=== PATIENT | female | born 1970 | race Hispanic/Latino ===

== ENCOUNTER 2018-04-30 13:21 | Emergency (ER) | payer OTHER ==
[~2018-04-30] VITALS: Ht 165.1 cm; Wt 112.0 kg
--- OUTSIDE RECORDS SUMMARY | 2018-04-30 13:24 | XMS REPORT | Continuity of Care Document ---
Author Author [facility] Interface Address Unknown Phone Unavailable Problems Problem Status Onset Date Classification Date Reported Comments Source Headache 06/05/2017 09/04/2017 [facility] Aching headache 05/29/2017 09/04/2017 [facility] HEADACHE Active 05/29/2017 [facility] Mixed anxiety and depressive disorder<sup>3, 4</sup> Active 10/04/2012 Problem 09/04/2017 Data migrated from [employer] on 09/19/14. [facility] 784.0 - HEADACHE Active 07/05/2012 [facility] [place] Headache<sup>1, 2</sup> Active 04/05/2012 Problem 09/04/2017 Data migrated from [employer] on 09/19/14. [facility] Essential hypertension 09/04/2017 [facility] Anxiety Resolved Problem 09/04/2017 [facility] Elevated serum cholesterol Resolved Problem 09/04/2017 [facility] H/O: migraine Resolved Problem 09/04/2017 [facility] Morbid obesity Active Problem 09/04/2017 [facility] Medications Medication Details Route Status Patient Instructions Ordering Provider Order Date Source Phenergan 25 mg oral tablet 25 mg=1 tab, PO, Q6H, PRN Nausea, # 15 tab, 0 Refill(s) Active 05/29/2017 [facility] normal saline 0.9% IV 500 mL 500 mL, Rate: 500 ml/hr, Infuse over: 1 hr, Route: IV, Dosing Weight 104.545 kg, Total Volume: 500, Start date: 05/29/17 15:08:00 BEE PRODUCER, Duration: 1 doses or times, Stop date: 05/29/17 16:07:00 BEE PRODUCER, 2.15, m2 Inactive 05/29/2017 [facility] Diphenhydramine 12.5 mg, 0.25 mL, Route: IVP, Drug form: INJ, ONCE, Dosing Weight 104.545, kg, Priority: STAT, Start date: 05/29/17 15:07:00 BEE PRODUCER, Stop date: 05/29/17 15:07:00 CSTNotes: (Same as: Benadryl) Inactive 05/29/2017 [facility] Metoclopramide 10 mg, 2 mL, Route: IVP, Drug form: SOLN, ONCE, Dosing Weight 104.545, kg, Priority: STAT, Start date: 05/29/17 15:07:00 BEE PRODUCER, Stop date: 05/29/17 15:07:00 CSTNotes: (Same as: Reglan) Inactive 05/29/2017 [facility] Saline Flush 0.9% 10 mL, Route: IVP, Drug Form: INJ, Dosing Weight 108.182, kg, PRN, PRN Line Flush, Start date: 05/29/17 13:36:00 BEE PRODUCER, Duration: 30 day, Stop date: 06/28/17 13:35:00 CSTNotes: (Same as: BD Posiflush) Inactive 05/29/2017 [facility] Allergies, Adverse Reactions, Alerts Substance Category Reaction Severity Reaction type Status Date Reported Comments Source Immunizations Immunization Date Given Site Status Last Updated Comments Source Results Order Name Results Value Reference Range Date Interpretation Comments Source URINE AND STOOL UA Urobilinogen <=1.0 mg/dL 0.1 - 1.0 05/29/2017 [facility] URINE AND STOOL UA Nitrite Negative (05/29/17 2:06 PM) Negative 05/29/2017 [facility] URINE AND STOOL UA Spec Grav 1.020 <=1.030 05/29/2017 [facility] URINE AND STOOL UA Turbidity Clear (05/29/17 2:06 PM) Clear 05/29/2017 [facility] URINE AND STOOL UA Bili Negative *NA* (05/29/17 2:06 PM) Negative 05/29/2017 [facility] URINE AND STOOL UA Blood Negative (05/29/17 2:06 PM) Negative 05/29/2017 [facility] URINE AND STOOL UA Ketones Negative mg/dL Negative mg/dL 05/29/2017 [facility] URINE AND STOOL UA Color Yellow *NA* (05/29/17 2:06 PM) Yellow 05/29/2017 [facility] URINE AND STOOL UA Mucus Few /LPF None Seen /LPF 05/29/2017 [facility] URINE AND STOOL UA Leuk Est Negative (05/29/17 2:06 PM) Negative 05/29/2017 [facility] URINE AND STOOL UA RBC 3 /HPF 0 - 2 05/29/2017 [facility] URINE AND STOOL UA Sq Epi Occasional /LPF Few /LPF 05/29/2017 [facility] URINE AND STOOL UA WBC 1 /HPF 0 - 5 05/29/2017 [facility] URINE AND STOOL UA Glucose Negative mg/dL Negative mg/dL 05/29/2017 [facility] URINE AND STOOL UA pH 6.0 5.0 - 8.0 05/29/2017 [facility] URINE AND STOOL UA Protein 100 mg/dL Negative mg/dL 05/29/2017 [facility] CARDIAC ENZYMES CK MB Index 1.0 0.0 - 2.5 05/29/2017 [facility] CARDIAC ENZYMES Total CK 111 unit/L 12 - 191 05/29/2017 [facility] CARDIAC ENZYMES CK MB 1.1 ng/mL 0.5 - 3.6 05/29/2017 [facility] CARDIAC ENZYMES Troponin-I null 0.00 - 0.40 05/29/2017 [facility] CARDIAC ENZYMES BNP 14 pg/mL <=100 pg/mL 05/29/2017 [facility] CHEM PANEL eGFR 107 mL/min/1.73m2 05/29/2017 Result Comment: The eGFR is calculated using the CKD-EPI formula. In most young, healthy individuals the eGFR will be >90 mL/min/1.73m2. The eGFR declines with age. An eGFR of 60-89 may be normal in some populations, particularly the elderly, for whom the CKD-EPI formula has not been extensively validated. Use of the eGFR is not recommended in the following populations: Individuals with unstable creatinine concentrations, including patients and those with serious co-morbid conditions. Patients with extremes in muscle mass or diet. The data above are obtained from the National Kidney Disease Education Program (NKDEP) which additionally recommends that when the eGFR is used in patients with extremes of body mass index for purposes of drug dosing, the eGFR should be multiplied by the estimated BMI. [facility] CHEM PANEL AGAP 11.6 meq/L 10.0 - 20.0 05/29/2017 [facility] CHEM PANEL Bili Total 0.5 mg/dL 0.2 - 1.3 05/29/2017 [facility] CHEM PANEL A/G Ratio 0.9 0.7 - 1.6 05/29/2017 [facility] CHEM PANEL Globulin 4.3 g/dL 2.7 - 4.2 05/29/2017 [facility] CHEM PANEL Alk Phos 73 unit/L 39 - 136 05/29/2017 [facility] CHEM PANEL AST 21 unit/L 0 - 37 05/29/2017 [facility] CHEM PANEL B/C Ratio 25 6 - 25 05/29/2017 [facility] CHEM PANEL ALT 29 unit/L 0 - 65 05/29/2017 [facility] CHEM PANEL Total Protein 8.0 g/dL 6.4 - 8.4 05/29/2017 [facility] CHEM PANEL Albumin Lvl 3.7 g/dL 3.5 - 5.0 05/29/2017 [facility] CHEM PANEL Calcium Lvl 8.6 mg/dL 8.5 - 10.5 05/29/2017 [facility] CHEM PANEL Potassium Lvl 3.6 meq/L 3.5 - 5.1 05/29/2017 [facility] CHEM PANEL BUN 16 mg/dL 7 - 22 05/29/2017 [facility] CHEM PANEL Chloride Lvl 107 meq/L 95 - 109 05/29/2017 [facility] CHEM PANEL Sodium Lvl 139 meq/L 135 - 145 05/29/2017 [facility] CHEM PANEL Glucose Lvl 111 mg/dL 70 - 99 05/29/2017 [facility] CHEM PANEL Creatinine Lvl 0.64 mg/dL 0.50 - 1.40 05/29/2017 [facility] CHEM PANEL CO2 24 meq/L 24 - 32 05/29/2017 [facility] HEMATOLOGY Eosinophils 0.5 % 0.0 - 4.0 05/29/2017 [facility] HEMATOLOGY Basophils 0.4 % 0.0 - 1.0 05/29/2017 [facility] HEMATOLOGY Segs-Bands # 5.1 K/CMM 1.5 - 8.1 05/29/2017 [facility] HEMATOLOGY Lymphocytes # 1.4 K/CMM 1.0 - 5.5 05/29/2017 [facility] HEMATOLOGY Monocytes # 0.4 K/CMM 0.0 - 0.8 05/29/2017 [facility] HEMATOLOGY Segs 73.3 % 45.0 - 75.0 05/29/2017 [facility] HEMATOLOGY Lymphocytes 19.6 % 20.0 - 40.0 05/29/2017 [facility] HEMATOLOGY Monocytes 6.2 % 2.0 - 12.0 05/29/2017 [facility] HEMATOLOGY MCHC 33.5 g/dL 32.0 - 36.0 05/29/2017 [facility] HEMATOLOGY RDW 13.4 % 11.5 - 14.5 05/29/2017 [facility] HEMATOLOGY Platelet 260 K/CMM 133 - 450 05/29/2017 [facility] MPV 7.2 fL 7.4 - 10.4 05/29/2017 [facility] [place] WBC 6.9 K/CMM 3.7 - 10.4 05/29/2017 [facility] Hgb 15.2 g/dL 12.0 - 16.0 05/29/2017 [facility] [place] RBC 5.14 M/CMM 4.20 - 5.40 05/29/2017 [facility] Hct 45.3 % 36.0 - 48.0 05/29/2017 [facility] [place] MCV 88.2 fL 80.0 - 98.0 05/29/2017 [facility] [place] MCH 29.5 pg 27.0 - 31.0 05/29/2017 [facility] [place] INR 1.08 0.85 - 1.17 05/29/2017 [facility] [place] PT 14.0 s 12.0 - 14.7 05/29/2017 [facility] D-Dimer null 05/29/2017 [facility] PTT 25.2 s 22.9 - 35.8 05/29/2017 [facility] VIRAL - SEROLOGY Influ B Negative (05/29/17 1:55 PM) Negative 05/29/2017 [facility] VIRAL - SEROLOGY Influ A Negative (05/29/17 1:55 PM) Negative 05/29/2017 [facility] Brain wo contrast CT Brain wo contrast CT Clinical Indication: - hernandez syncope Comparison: Comparison is made to the 07/16/2012 exam TECHNIQUE: CT images were obtained from the foramen magnum to the vertex without the use of intravenous contrast on a multidetector CT. Coronal and sagittal reconstructions were obtained. CT radiation dose DLP: 982 mGy-cm FINDINGS: BRAIN PARENCHYMA: There are normal blackmon-white interfaces, sulci and gyri. There are no focal mass lesions on this noncontrast head CT. There is no mass effect, midline shift or edema. There are no intra-axial or extra-axial fluid collections, intraventricular or intraparenchymal hemorrhage. The pineal, sellar, brainstem, cerebellum and skull base regions appear unremarkable. VENTRICLES: The lateral ventricles, third and fourth ventricles appear unremarkable. The basilar cisterns are normal. ORBITS, MASTOIDS AND PARANASAL SINUSES: The visualized orbits and paranasal sinuses are unremarkable. The mastoid air cells are clear. SKULL: There are no osseous abnormalities. If there is further concern for intracranial pathology or acute stroke, MRI of the brain may be performed for complete assessment. IMPRESSION: Unremarkable noncontrast head CT with no mass, hemorrhage or subacute stroke. No interval change. SL: [id number] 05/29/2017 - - Read by: Juan George MD Dictated Date/time: 05/29/17 16:24 Electronically Signed by: Juan George MD 05/29/17 16:27 FINAL REPORT [facility] Chest 1view DX Chest 1view DX PROCEDURE: Single view chest. Clinical Indication: - syncope Comparison: None. FINDINGS: The mediastinum and cardiac silhouette are within normal limits. No pneumonia, effusion, or pneumothorax. No acute osseous abnormalities. IMPRESSION: No focal lung disease. SL: [id number] 05/29/2017 - - Read by: Dominick Person MD Dictated Date/time: 05/29/17 14:13 Electronically Signed by: Dominick Person MD 05/29/17 14:14 FINAL REPORT [facility] Vital Signs Vital Sign Value Date Comments Source Respitory Rate 18 05/29/2017 [facility] Heart Rate 69 05/29/2017 [facility] Systolic (mm Hg) 148 05/29/2017 [facility] Diastolic (mm Hg) 82 05/29/2017 [facility] Temperature Oral (F) 98.7 F 05/29/2017 [facility] Weight 104.545 05/29/2017 [facility] BMI Calculated 45.01 05/29/2017 [facility] Height 152.4 cm 05/29/2017 [facility] Systolic (mm Hg) 174 05/29/2017 [facility] Diastolic (mm Hg) 95 05/29/2017 [facility] Temperature Oral (F) 98.7 F 05/29/2017 [facility] Heart Rate 83 05/29/2017 [facility] Respitory Rate 18 05/29/2017 [facility] Encounters Location Location Details Encounter Type Encounter Number Reason For Visit Attending Provider ADM Date DC Date Status Source OD [id number] 784.0 - HEADACHE ISABEL PEDERSON 07/16/2012 Active [facility] [id number] ISABEL PEDERSON 03/25/2015 Active [facility] Emergency [id number] Isidro Kenyon 05/29/2017 05/29/2017 [facility] Procedures Procedure Code Date Perfomer Comments Source section [id number] [facility]
--- OUTSIDE RECORDS SUMMARY | 2018-04-30 13:24 | XMS REPORT | Summary of Care ---
Author Author [facility] Organization [facility] Address Unknown Phone Unavailable Encounter HQ Manuel(FIN) [id number] Date(s): 05/29/17 - 05/29/17 [facility] [address] [place] [address]- Encounter Diagnosis Aching headache (Discharge Diagnosis) - 05/29/17 Headache (Final) - 06/04/17 Essential (primary) hypertension (Final) - Discharge Disposition: Home or Self Care Attending Physician: Isidro Prescott MD Vital Signs Most recent to 1 2 oldest [Reference Range]: Height 152.4 cm (05/29/17 1:35 PM) Temperature Oral 98.7 DegF 98.7 DegF [96.4-99.1 DegF] (05/29/17 4:58 PM) (05/29/17 1:35 PM) Blood Pressure 148/82 mmHg 174/95 mmHg [90-140/60-90 mmHg] *HI* *HI* (05/29/17 4:58 PM) (05/29/17 1:35 PM) Respiratory Rate 18 BRMIN 18 BRMIN [14-20 BRMIN] (05/29/17 4:58 PM) (05/29/17 1:35 PM) Peripheral Pulse 69 bpm 83 bpm Rate [60-100 bpm] (05/29/17 4:58 PM) (05/29/17 1:35 PM) Weight 104.545 kg (05/29/17 1:35 PM) Body Mass Index 45.01 m2 (05/29/17 1:35 PM) Problem List Condition Effective Dates Status Health Status Informant Anxiety(Confirmed) Resolved Elevated serum Resolved cholesterol(Confirme d) H/O: Resolved migraine(Confirmed) Headache1, 2 04/05/12 Active Mixed anxiety and 10/04/12 Active depressive disorder3, 4 Morbid Active obesity(Confirmed) 1Data migrated from [employer] on 11/30/14. 2Data migrated from [employer] on 09/19/14. 3Data migrated from [employer] on 11/30/14. 4Data migrated from [employer] on 09/19/14. Allergies, Adverse Reactions, Alerts Substance Reaction Severity Status NKDA Active Medications diphenhydrAMINE 12.5 mg, 0.25 mL, Route: IVP, Drug form: INJ, ONCE, Dosing Weight 104.545, kg, P riority: STAT, Start date: 05/29/17 15:07:00 CARDIAC TECH, Stop date: 05/29/17 15:07:[address] Notes: (Same as: Benadryl) Start Date: 05/29/17 Stop Date: 05/29/17 Status: Completed metoclopramide 10 mg, 2 mL, Route: IVP, Drug form: SOLN, ONCE, Dosing Weight 104.545, kg, Prior ity: STAT, Start date: 05/29/17 15:07:00 CARDIAC TECH, Stop date: 05/29/17 15:07:00 CARDIAC TECH Notes: (Same as: Reglan) Start Date: 05/29/17 Stop Date: 05/29/17 Status: Completed normal saline 0.9% IV 500 mL 500 mL, Rate: 500 ml/hr, Infuse over: 1 hr, Route: IV, Dosing Weight 104.545 kg, Total Volume: 500, Start date: 05/29/17 15:08:00 CARDIAC TECH, Duration: 1 doses or time s, Stop date: 05/29/17 16:07:00 CARDIAC TECH, 2.15, m2 Start Date: 05/29/17 Stop Date: 05/29/17 Status: Completed Phenergan 25 mg oral tablet 25 mg=1 tab, PO, Q6H, PRN Nausea, # 15 tab, 0 Refill(s) Start Date: 05/29/17 Stop Date: 06/02/17 Status: Ordered Saline Flush 0.9% 10 mL, Route: IVP, Drug Form: INJ, Dosing Weight 108.182, kg, PRN, PRN Line Flus h, Start date: 05/29/17 13:36:00 CARDIAC TECH, Duration: 30 day, Stop date: 06/28/17 13:3 5:00 CARDIAC TECH Notes: (Same as: BD Posiflush) Start Date: 05/29/17 Stop Date: 05/29/17 Status: Discontinued Results ELECTROLYTES Most recent to 1 oldest [Reference Range]: Sodium Lvl [135-145 139 mEq/L mEq/L] (05/29/17 1:55 PM) Potassium Lvl 3.6 mEq/L [3.5-5.1 mEq/L] (05/29/17 1:55 PM) Chloride Lvl [95-109 107 mEq/L mEq/L] (05/29/17 1:55 PM) CO2 [24-32 mEq/L] 24 mEq/L (05/29/17 1:55 PM) AGAP [10.0-20.0 11.6 mEq/L mEq/L] (05/29/17 1:55 PM) CHEM PANEL Most recent to 1 oldest [Reference Range]: Creatinine Lvl 0.64 mg/dL [0.50-1.40 mg/dL] (05/29/17 1:55 PM) eGFR 107 mL/min/1.73m2 1 *NA* (05/29/17 1:55 PM) BUN [7-22 mg/dL] 16 mg/dL (05/29/17 1:55 PM) B/C Ratio [6-25] 25 (05/29/17 1:55 PM) Glucose Lvl [70-99 111 mg/dL mg/dL] *HI* (05/29/17 1:55 PM) Total Protein 8.0 g/dL [6.4-8.4 g/dL] (05/29/17 1:55 PM) Albumin Lvl [3.5-5.0 3.7 g/dL g/dL] (05/29/17 1:55 PM) Globulin [2.7-4.2 4.3 g/dL g/dL] *HI* (05/29/17 1:55 PM) A/G Ratio [0.7-1.6] 0.9 (05/29/17 1:55 PM) Calcium Lvl 8.6 mg/dL [8.5-10.5 mg/dL] (05/29/17 1:55 PM) ALT [0-65 unit/L] 29 unit/L (05/29/17 1:55 PM) AST [0-37 unit/L] 21 unit/L (05/29/17 1:55 PM) Alk Phos [39-136 73 unit/L unit/L] (05/29/17 1:55 PM) Bili Total [0.2-1.3 0.5 mg/dL mg/dL] (05/29/17 1:55 PM) 1Result Comment: The eGFR is calculated using the [...] from the National Kidney Disease Education Program ( NKDEP) which additionally recommends that when the eGFR is used in patients with extremes of body mass index for purposes of drug dosing, the eGFR should be mul tiplied by the estimated BMI. CARDIAC ENZYMES Most recent to 1 oldest [Reference Range]: Total CK [12-191 111 unit/L unit/L] (05/29/17 1:55 PM) CK MB [0.5-3.6 1.1 ng/mL ng/mL] (05/29/17 1:55 PM) CK MB Index 1.0 [0.0-2.5] (05/29/17 1:55 PM) Troponin-I <0.02 ng/mL [0.00-0.40 ng/mL] (05/29/17 1:55 PM) BNP [<=100 pg/mL] 14 pg/mL (05/29/17 1:55 PM) URINE AND STOOL Most recent to 1 oldest [Reference Range]: UA Turbidity [Clear] Clear (05/29/17 2:06 PM) UA Color [Yellow] Yellow *NA* (05/29/17 2:06 PM) UA pH [5.0-8.0] 6.0 (05/29/17 2:06 PM) UA Spec Grav 1.020 [<=1.030] (05/29/17 2:06 PM) UA Glucose [Negative Negative mg/dL mg/dL] *NA* (05/29/17 2:06 PM) UA Blood [Negative] Negative (05/29/17 2:06 PM) UA Ketones [Negative Negative mg/dL mg/dL] *NA* (05/29/17 2:06 PM) UA Protein [Negative 100 mg/dL mg/dL] *ABN* (05/29/17 2:06 PM) UA Urobilinogen <=1.0 mg/dL [0.1-1.0 mg/dL] *NA* (05/29/17 2:06 PM) UA Bili [Negative] Negative *NA* (05/29/17 2:06 PM) UA Leuk Est Negative [Negative] (05/29/17 2:06 PM) UA Nitrite Negative [Negative] (05/29/17 2:06 PM) UA WBC [0-5 /HPF] 1 /HPF (05/29/17 2:06 PM) UA RBC [0-2 /HPF] 3 /HPF *HI* (05/29/17 2:06 PM) UA Sq Epi [Few /LPF] Occasional /LPF *NA* (05/29/17 2:06 PM) UA Mucus [None Seen Few /LPF /LPF] *NA* (05/29/17 2:06 PM) HEMATOLOGY Most recent to 1 oldest [Reference Range]: WBC [3.7-10.4 K/CMM] 6.9 K/CMM (05/29/17 1:55 PM) RBC [4.20-5.40 5.14 M/CMM M/CMM] (05/29/17 1:55 PM) Hgb [12.0-16.0 g/dL] 15.2 g/dL (05/29/17 1:55 PM) Hct [36.0-48.0 %] 45.3 % (05/29/17 1:55 PM) MCV [80.0-98.0 fL] 88.2 fL (05/29/17 1:55 PM) MCH [27.0-31.0 pg] 29.5 pg (05/29/17 1:55 PM) MCHC [32.0-36.0 33.5 g/dL g/dL] (05/29/17 1:55 PM) RDW [11.5-14.5 %] 13.4 % (05/29/17 1:55 PM) MPV [7.4-10.4 fL] 7.2 fL *LOW* (05/29/17 1:55 PM) Platelet [133-450 260 K/CMM K/CMM] (05/29/17 1:55 PM) Segs [45.0-75.0 %] 73.3 % (05/29/17 1:55 PM) Lymphocytes 19.6 % [20.0-40.0 %] *LOW* (05/29/17 1:55 PM) Monocytes [2.0-12.0 6.2 % %] (05/29/17 1:55 PM) Eosinophils [0.0-4.0 0.5 % %] (05/29/17 1:55 PM) Basophils [0.0-1.0 0.4 % %] (05/29/17 1:55 PM) Segs-Bands # 5.1 K/CMM [1.5-8.1 K/CMM] (05/29/17 1:55 PM) Lymphocytes # 1.4 K/CMM [1.0-5.5 K/CMM] (05/29/17 1:55 PM) Monocytes # [0.0-0.8 0.4 K/CMM K/CMM] (05/29/17 1:55 PM) PT [12.0-14.7 14.0 seconds seconds] (05/29/17 1:55 PM) INR [0.85-1.17] 1.08 (05/29/17 1:55 PM) D-Dimer <0.27 ug/mL FEU *NA* (05/29/17 1:55 PM) PTT [22.9-35.8 25.2 seconds seconds] (05/29/17 1:55 PM) VIRAL - SEROLOGY Most recent to 1 oldest [Reference Range]: Influ A [Negative] Negative (05/29/17 1:55 PM) Influ B [Negative] Negative (05/29/17 1:55 PM) Immunizations No data available for this section Procedures Procedure Date Related Diagnosis Body Site Status section Completed Social History Social History Type Response Smoking Status Never smoker; Exposure to Tobacco Smoke None; Cigarette Smoking Last 365 Days No; Reg Smoking Cessation Counseling No entered on: 03/25/15 Assessment and Plan No data available for this section
[2018-04-30 14:32] LABS: PREGNANCY TEST, URINE NEGATIVE (NEGATIVE)
[2018-04-30 14:44] LABS: BILIRUBIN,URINE NEGATIVE (NEGATIVE); CLARITY,URINE CLEAR (CLEAR); COLOR,URINE YELLOW (YELLOW); KETONES,URINE NEGATIVE (NEGATIVE); LEUKOCYTE ESTERASE ,URINE NEGATIVE (NEGATIVE); NITRITE,URINE NEGATIVE (NEGATIVE); PROTEIN,URINE DIPSTICK NEGATIVE (NEGATIVE); URINE UROBILINOGEN 0.2 mg/dL (0.2 - 1)
[2018-04-30 14:45] LABS: BACTERIA,URINE MODERATE /HPF; EPITHELIAL CELLS,URINE MODERATE /LPF; WBC,URINE (MAN) 0-5 /HPF (0-5)
--- NOTE | 2018-04-30 15:46 | Diagnostic Imaging Report ---
EXAMINATION: CHEST 2 VIEWS INDICATION: ^chest pain ^[id number] ^1510 ^Y COMPARISON: None FINDINGS: PA and lateral views TUBES and LINES: None. LUNGS: Lungs are well inflated. There is no evidence of pneumonia or pulmonary edema. PLEURA: No pleural effusion or pneumothorax. HEART AND MEDIASTINUM: The cardiomediastinal silhouette is unremarkable. BONES AND SOFT TISSUES: No acute osseous lesion. Soft tissues are unremarkable. UPPER ABDOMEN: No free air under the diaphragm. IMPRESSION: No acute thoracic abnormality. Signed by: Dr. Jez Muro MD on 04/30/2018 3:43 PM
--- NOTE | 2018-04-30 16:30 | NUR ---
PT AND FAMILY ORIENTED TO ROOM, GIVEN CALL HODGE; EXPLAINED WAIT TIME AND INSTRUCTED TO CALL ME IF THEY HAD ANY CHANGES OR IF THEY NEEDED ANYTHING.
[2018-04-30 16:41] LABS: BASOPHILS % 0.2 % (0.0-1.0); EOSINOPHILS % 0.4 % (0.0-6.0); HEMOGLOBIN 15.4 g/dL (12.0-16.0); LYMPHOCYTES # (AUTO) 0.8 (1.0-3.2); LYMPHOCYTES % 9.3 % (18.0-39.1); MEAN CORPUSCULAR HEMOGLOBIN 30.1 pg (28-32); MEAN CORPUSCULAR HGB CONC 33.5 g/dL (31-35); MONOCYTES # (AUTO) 0.5 (0.2-0.8); MONOCYTES % 6.3 % (4.4-11.3); NEUTROPHILS # (AUTO) 6.8 (2.1-6.9); NEUTROPHILS % 83.6 % (38.7-80.0); PLATELET COUNT 281 x10e3/uL (140-360); RED BLOOD COUNT 5.11 x10e6/uL (3.6-5.1); RED CELL DISTRIBUTION WIDTH 13.1 % (11.7-14.4)
[2018-04-30] MEDS ORDERED: KETOROLAC TROMETHAMINE 30 MG/ML VIAL IV STA (16:59)
[2018-04-30] MEDS ORDERED: LABETALOL HCL 5 MG/ML 20ML VIAL IV NR (17:00)
[2018-04-30 17:01] LABS: ALANINE AMINOTRANSFERASE 38 IU/L (0-55); ALBUMIN 3.9 g/dL (3.5-5.0); ALKALINE PHOSPHATASE 78 IU/L (40-150); ANION GAP 15.1 mmol/L (8-16); BLOOD UREA NITROGEN 14 mg/dL (7-26); BUN/CREATININE RATIO 19 (6-25); CALCIUM 9.3 mg/dL (8.4-10.2); CARBON DIOXIDE 24 mmol/L (22-29); CHLORIDE 104 mmol/L (98-107); CREATINE KINASE 86 IU/L (29-168); CREATININE, SERUM 0.75 mg/dL (0.57-1.11); EST GLOMERULAR FILTRATION RATE > 60 ML/MIN (60-); GLUCOSE 102 mg/dL (74-118); MAGNESIUM 2.1 MG/DL (1.3-2.1); POTASSIUM 3.1 mmol/L (3.5-5.1); SODIUM 140 mmol/L (136-145)
[2018-04-30] MEDS ORDERED: KETOROLAC TROMETHAMINE 30 MG/ML VIAL IV SCH (17:15)
[2018-04-30] MEDS ORDERED: POTASSIUM CHLORIDE 20 MEQ TAB CR PO STA (17:22)
== END 2018-04-30 18:36 | disposition home or self-care (01) ==
LOC: ER 13:21
DX: R07.89 Other chest pain (principal); E87.6 Hypokalemia; K52.9 Noninfective gastroenteritis and colitis, unspecified; I10 Essential (primary) hypertension; E66.9 Obesity, unspecified
CPT/HCPCS: 36415; 71046; 80053; 81001; 81025; 82550; 82553; 83735; 84484; 85025; 93005; 99284; J1885

== ENCOUNTER 2021-05-06 17:54 | Emergency (ER) | payer OTHER ==
[~2021-05-06] VITALS: Ht 165.1 cm; Wt 161.0 kg
[2021-05-06 18:25] VITALS: BP 5/5
[2021-05-06] MEDS ORDERED: IBUPROFEN 600 MG TAB PO STA (18:42)
== END 2021-05-06 20:03 | disposition home or self-care (01) ==
LOC: ER 18:46
DX: S16.1XXA Strain of muscle, fascia and tendon at neck level, initial encounter (principal); S39.012A Strain of muscle, fascia and tendon of lower back, initial encounter; V43.52XA Car driver injured in collision with other type car in traffic accident, initial encounter; Y92.488 Other paved roadways as the place of occurrence of the external cause; I10 Essential (primary) hypertension; E11.9 Type 2 diabetes mellitus without complications
CPT/HCPCS: 72050; 72110; 99283